=== PATIENT | female | born 1985 | race Caucasian/White ===

== ENCOUNTER 2017-04-29 19:11 | Emergency (ER) | payer MEDICAID ==
[~2017-04-29] VITALS: Ht 160 cm; Wt 41.5 kg
[~2017-04-29 19:11] MED LIST: ONDA4TAB6 PO; ONDA8TAB6 PO; POTA10TA36 PO
[2017-04-29 20:22] VITALS: BP 137/88
[2017-04-29 20:27] LABS: URINE HCG NEGATIVE (NEG)
[2017-04-29 20:36] LABS: CLARITY,URINE SLIGHTLY CLOUDY (Clear); COLOR,URINE YELLOW (Yellow); GLUCOSE, URINE NEGATIVE (Neg); KETONES,URINE 40 mg/dl (Neg); LEUKOCYTE ESTERASE ,URINE TRACE (Neg); NITRITES, URINE NEGATIVE (Neg); OCCULT BLOOD,URINE LARGE (Neg); PROTEIN,URINE NEGATIVE (Neg); UROBILINOGEN,URINE 0.2 E.U/dL (0.2-1.0)
[2017-04-29 21:03] LABS: UA COLLECTION TYPE CLN CATCH MIDSTREAM
[2017-04-29 21:06] LABS: MUCUS STRANDS MANY /LPF (Neg); SQUAMOUS EPITHELIAL CELL,UR MANY /LPF (FEW)
[2017-04-29 21:08] LABS: BACTERIA,URINE 1+ /HPF (Neg)
[2017-04-29 21:09] LABS: TRICHOMONAS,URINE FEW /HPF (NEGATIVE)
== END 2017-04-29 20:52 | disposition left against medical advice (07) ==
LOC: ER 19:12
DX: R11.10 Vomiting, unspecified (principal); R19.7 Diarrhea, unspecified; Z53.21 Procedure and treatment not carried out due to patient leaving prior to being seen by health care provider
CPT/HCPCS: 81001; 81025; 99281

== ENCOUNTER 2019-07-26 15:19 | Emergency (ER) | payer MEDICAID ==
[~2019-07-26] VITALS: Ht 162.6 cm; Wt 48.6 kg
--- NOTE | 2019-07-26 15:59 | NUR ---
TELE NEURO CONSULT HAS BEEN INITIATED
--- NOTE | 2019-07-26 16:20 | NUR ---
TELE NEURO ON GOING.
--- NOTE | 2019-07-26 16:31 | NUR ---
ALLY Sullivan at bedside.
[2019-07-26] MEDS ORDERED: ketorolac trometh inj. 60 MG/2 ML VIAL IM ONE (16:40)
[2019-07-26] MEDS ORDERED: HYDROcodone/acetaminophen 10/325mg tab PO ONE (16:40)
[2019-07-26 16:55] LABS: BASOPHILS % (AUTO) 0.6 % (0-1); EOSINOPHILS # (AUTO) 0.3 X10'3 (0-0.9); EOSINOPHILS % (AUTO) 3.8 % (0-6); HEMATOCRIT 35.4 % (35.0-45.0); HEMOGLOBIN 12.3 g/dl (12.0-16.0); LYMPHOCYTES # (AUTO) 2.5 X10'3 (1.1-4.8); LYMPHOCYTES % (AUTO) 34.3 % (21-51); MEAN CORPUSCULAR HEMOGLOBIN 31.1 PG (27.0-31.0); MEAN CORPUSCULAR HGB CONC 34.8 g/dL (33.0-36.5); MEAN CORPUSCULAR VOLUME 89.4 FL (78-98); MEAN PLATELET VOLUME 6.9 FL (7.4-10.4); MONOCYTES # (AUTO) 0.5 X10'3 (0-0.9); MONOCYTES % (AUTO) 7.1 % (2-12); NEUTROPHILS # (AUTO) 3.9 X10'3 (1.8-7.7); NEUTROPHILS % (AUTO) 54.2 % (42-75); PLATELET COUNT 262 X10'3 (140-440); RED BLOOD COUNT 3.97 X10'6 (4.20-5.60); RED CELL DISTRIBUTION WIDTH 13.4 % (11.5-14.5); WHITE BLOOD COUNT 7.3 X10'3 (4.5-11.0)
[2019-07-26 17:10] LABS: PARTIAL THROMBOPLASTIN TIME 29 SECONDS (22-32)
[2019-07-26 17:13] LABS: ALANINE AMINOTRANSFERASE 14 U/L (12-78); ALBUMIN 3.8 G/DL (3.4-5.0); ALBUMIN/GLOBULIN RATIO 1.2 (1.1-1.5); ALKALINE PHOSPHATASE 50 IU/L (46-116); ANION GAP 4 (8-16); ASPARTATE AMINO TRANSFERASE 14 U/L (10-37); BILIRUBIN,TOTAL 0.3 MG/DL (0.1-1.0); BLOOD UREA NITROGEN 10 MG/DL (7-18); BUN/CREATININE RATIO 15.6 (6.6-38.0); CALCIUM 9.2 MG/DL (8.5-10.1); CHLORIDE 106 MMOL/L (99-107); CREATININE 0.64 MG/DL (0.40-0.90); GLUCOSE 91 MG/DL (70-104); POTASSIUM 3.8 MMOL/L (3.5-5.1); SODIUM 142 MMOL/L (135-145); TOTAL CARBON DIOXIDE 32.5 MMOL/L (24-32); TOTAL PROTEIN 7.1 G/DL (6.4-8.2); eGFR > 90 ML/MIN
[2019-07-26 17:16] LABS: TROPONIN I < 0.04 NG/ML (0.0-0.05)
[2019-07-26 17:21] LABS: C-REACTIVE PROTEIN < 0.05 MG/DL (0.0-0.5)
--- NOTE | 2019-07-26 18:02 | NUR ---
Pt ambulated 25 feet with standby assist. Pt states, "I don't want to put weight on that leg because I don't know if it is going to hold me up." Dr Mcguire made aware.
[2019-07-26 19:50] VITALS: BP 110/72
== END 2019-07-26 19:54 | disposition home or self-care (01) ==
LOC: ER 15:20
DX: M79.672 Pain in left foot (principal); R20.0 Anesthesia of skin; R51 Headache; G89.29 Other chronic pain; F32.9 Major depressive disorder, single episode, unspecified; F15.90 Other stimulant use, unspecified, uncomplicated; Z86.69 Personal history of other diseases of the nervous system and sense organs; Z72.89 Other problems related to lifestyle; Z98.890 Other specified postprocedural states; Z88.0 Allergy status to penicillin; Z88.2 Allergy status to sulfonamides; Z79.899 Other long term (current) drug therapy
CPT/HCPCS: 36415; 70450; 80053; 82948; 84484; 85025; 85610; 85651; 85730; 86140; 93005; 96372; 99285; J1885

== ENCOUNTER 2020-01-22 03:15 | Emergency (ER) | payer MEDICAID ==
[~2020-01-22] VITALS: Ht 165.1 cm; Wt 50.0 kg
[2020-01-22 03:19] VITALS: BP 123/90
[2020-01-22] MEDS ORDERED: metoclopramide 10mg tablet PO ONE (03:50)
[2020-01-22] MEDS ORDERED: clindamycin 150mg capsule PO ONE (03:50)
[2020-01-22] MEDS ORDERED: HYDR-3965 PO (03:51)
[2020-01-22] MEDS ORDERED: CLIN150C8 PO (03:51)
[2020-01-22] MEDS: OXYcodone (OXYCONTIN) Ext Release 15 MG TAB.SR.12H PO ONE ×2 (03:56→04:00)
--- NOTE | 2020-01-22 04:01 | NUR ---
OXYCONTIN 15MG ER, DROPPED ON FLOOR, MEDICATION WASTED IN OMNICELL PHARMACIST AWARE, NEW ORDER PLACED
[2020-01-22] MEDS ORDERED: OXYcodone (OXYCONTIN) Ext Release 15 MG TAB.SR.12H PO ONE (04:05)
== END 2020-01-22 04:07 | disposition home or self-care (01) ==
LOC: ER 03:16
DX: H66.93 Otitis media, unspecified, bilateral (principal); H92.03 Otalgia, bilateral; G89.29 Other chronic pain; F32.9 Major depressive disorder, single episode, unspecified; F15.90 Other stimulant use, unspecified, uncomplicated; Z86.69 Personal history of other diseases of the nervous system and sense organs; Z98.890 Other specified postprocedural states; Z72.89 Other problems related to lifestyle; Z88.2 Allergy status to sulfonamides; Z88.0 Allergy status to penicillin; Z79.2 Long term (current) use of antibiotics; Z79.899 Other long term (current) drug therapy
CPT/HCPCS: 99284; J8597

== ENCOUNTER 2020-01-24 09:24 | Emergency (ER) | payer MEDICAID ==
[~2020-01-24] VITALS: Ht 162.6 cm; Wt 50.0 kg
[~2020-01-24 09:24] MED LIST changes: +CLIN150C8 PO; +HYDR-3965 PO
[2020-01-24] MEDS ORDERED: Cipro HC otic suspension 10ML bottle LEFT EAR STA (10:03)
[2020-01-24 10:27] VITALS: BP 100/63
[2020-01-24] MEDS ORDERED: LIDOcaine 4% (40 mg/ml) topical solution 50ml TP ONE (10:30)
[2020-01-24] MEDS ORDERED: HYDROcodone/acetaminophen 5mg/325mg tablet PO ONE (10:55)
== END 2020-01-24 11:44 | disposition home or self-care (01) ==
LOC: ER 09:24
DX: H60.592 Other noninfective acute otitis externa, left ear (principal); H61.22 Impacted cerumen, left ear; G89.29 Other chronic pain; F32.9 Major depressive disorder, single episode, unspecified; F15.90 Other stimulant use, unspecified, uncomplicated; Z86.69 Personal history of other diseases of the nervous system and sense organs; Z98.890 Other specified postprocedural states; Z72.89 Other problems related to lifestyle; Z88.0 Allergy status to penicillin; Z88.2 Allergy status to sulfonamides; Z79.2 Long term (current) use of antibiotics; Z79.899 Other long term (current) drug therapy
CPT/HCPCS: 69209; 99283

== ENCOUNTER 2021-02-10 12:39 | Emergency (ER) | payer MEDICAID ==
[~2021-02-10] VITALS: Ht 165.1 cm; Wt 56.8 kg
[~2021-02-10 12:39] MED LIST changes: -HYDR-3965 PO; -POTA10TA36 PO; +POTA10TA37 PO
[2021-02-10 12:46] VITALS: BP 143/93
[2021-02-10 13:17] LABS: BASOPHILS % (AUTO) 0.4 % (0-1); EOSINOPHILS # (AUTO) 0.2 X10'3 (0-0.9); EOSINOPHILS % (AUTO) 2.9 % (0-6); HEMATOCRIT 35.7 % (35.0-45.0); HEMOGLOBIN 12.4 g/dl (12.0-16.0); LYMPHOCYTES # (AUTO) 1.8 X10'3 (1.1-4.8); LYMPHOCYTES % (AUTO) 26.6 % (21-51); MEAN CORPUSCULAR HEMOGLOBIN 31.7 PG (27.0-31.0); MEAN CORPUSCULAR HGB CONC 34.8 g/dL (33.0-36.5); MEAN PLATELET VOLUME 6.7 FL (7.4-10.4); MONOCYTES # (AUTO) 0.6 X10'3 (0-0.9); NEUTROPHILS # (AUTO) 4.2 X10'3 (1.8-7.7); NEUTROPHILS % (AUTO) 61.1 % (42-75); PLATELET COUNT 276 X10'3 (140-440); RED BLOOD COUNT 3.92 X10'6 (4.20-5.60); RED CELL DISTRIBUTION WIDTH 12.4 % (11.5-14.5); WHITE BLOOD COUNT 6.8 X10'3 (4.5-11.0)
[2021-02-10] MEDS ORDERED: ALPRAZolam 0.5mg tablet PO ONE (13:25)
[2021-02-10 13:34] LABS: ALANINE AMINOTRANSFERASE 14 U/L (12-78); ALBUMIN 3.8 G/DL (3.4-5.0); ALKALINE PHOSPHATASE 62 IU/L (46-116); ANION GAP 4 (8-16); ASPARTATE AMINO TRANSFERASE 17 U/L (10-37); BILIRUBIN,TOTAL 0.3 MG/DL (0.1-1.0); BLOOD UREA NITROGEN 8 MG/DL (7-18); BUN/CREATININE RATIO 15.4 (6.6-38.0); CHLORIDE 101 MMOL/L (99-107); CREATININE 0.52 MG/DL (0.40-0.90); GLUCOSE 83 MG/DL (70-104); POTASSIUM 3.7 MMOL/L (3.5-5.1); SODIUM 137 MMOL/L (135-145); TOTAL CARBON DIOXIDE 32.2 MMOL/L (24-32); TOTAL PROTEIN 7.7 G/DL (6.4-8.2); eGFR > 90 ML/MIN
[2021-02-10] MEDS ORDERED: iohexol 300mg/ml 100ml inj. ONE (13:37)
[2021-02-10] MEDS ORDERED: oxyCODONE/APAP 5-325mg tablet PO ONE (15:40)
[2021-02-10] MEDS ORDERED: ACET-75 PO (17:56)
[2021-02-10] MEDS ORDERED: IBUP-1985 PO (17:56)
== END 2021-02-10 17:54 | disposition home or self-care (01) ==
LOC: ER 12:39
DX: E07.9 Disorder of thyroid, unspecified (principal); R22.1 Localized swelling, mass and lump, neck; R06.02 Shortness of breath; G89.29 Other chronic pain; F32.9 Major depressive disorder, single episode, unspecified; F15.90 Other stimulant use, unspecified, uncomplicated; Z98.890 Other specified postprocedural states; Z86.69 Personal history of other diseases of the nervous system and sense organs; Z72.89 Other problems related to lifestyle; Z88.0 Allergy status to penicillin; Z88.2 Allergy status to sulfonamides; Z79.2 Long term (current) use of antibiotics; Z79.899 Other long term (current) drug therapy
CPT/HCPCS: 36415; 70491; 71045; 80053; 84439; 84443; 85025; 99285; Q9967

== ENCOUNTER 2022-08-28 23:36 | Emergency (ER) | payer MEDICAID ==
[~2022-08-28] VITALS: Ht 165.1 cm; Wt 70.5 kg
[~2022-08-28 23:36] MED LIST changes: +CLIN-214 PO; -CLIN150C8 PO; +IBUP-1985 PO; +POTA-206 PO; -POTA10TA37 PO
[2022-08-29 00:01] VITALS: BP 153/85
[2022-08-29] MEDS ORDERED: CLIN300C54 PO (00:31)
[2022-08-29] MEDS ORDERED: IBUP-1986 PO (00:31)
== END 2022-08-29 00:38 | disposition home or self-care (01) ==
LOC: ER 23:37
DX: K04.7 Periapical abscess without sinus (principal); G89.29 Other chronic pain; M54.9 Dorsalgia, unspecified; F32.A Depression, unspecified; F15.10 Other stimulant abuse, uncomplicated; Z88.0 Allergy status to penicillin; Z88.1 Allergy status to other antibiotic agents; Z88.2 Allergy status to sulfonamides; Z79.899 Other long term (current) drug therapy
CPT/HCPCS: 99283

== ENCOUNTER 2022-09-28 13:08 | Emergency (ER) | payer MEDICAID ==
[~2022-09-28] VITALS: Ht 165.1 cm; Wt 65.0 kg
[~2022-09-28 13:08] MED LIST changes: +IBUP-1986 PO
[2022-09-28 13:47] LABS: BASOPHILS # (AUTO) 0.1 X10'3 (0-0.2); BASOPHILS % (AUTO) 0.5 % (0-1); EOSINOPHILS % (AUTO) 0.3 % (0-6); HEMATOCRIT 41.8 % (35.0-45.0); HEMOGLOBIN 14.2 g/dl (12.0-16.0); LYMPHOCYTES # (AUTO) 2.5 X10'3 (1.1-4.8); MEAN CORPUSCULAR HEMOGLOBIN 30.2 PG (27.0-31.0); MEAN CORPUSCULAR HGB CONC 34.1 g/dL (33.0-36.5); MEAN CORPUSCULAR VOLUME 88.7 FL (78-98); MONOCYTES # (AUTO) 0.8 X10'3 (0-0.9); MONOCYTES % (AUTO) 6.5 % (2-12); NEUTROPHILS # (AUTO) 8.5 X10'3 (1.8-7.7); NEUTROPHILS % (AUTO) 71.7 % (42-75); PLATELET COUNT 326 X10'3 (140-440); RED BLOOD COUNT 4.72 X10'6 (4.20-5.60); RED CELL DISTRIBUTION WIDTH 13.1 % (11.5-14.5); WHITE BLOOD COUNT 11.9 X10'3 (4.5-11.0)
[2022-09-28 13:48] VITALS: BP 154/94; PULSE 80; RESP 18; TEMP 97.4; O2SAT 96
[2022-09-28 14:03] LABS: APTT 25 SECONDS (22-32)
[2022-09-28 14:49] LABS: ALANINE AMINOTRANSFERASE 15 U/L (12-78); ALBUMIN 4.5 G/DL (3.4-5.0); ALKALINE PHOSPHATASE 87 IU/L (46-116); ANION GAP 20 (8-16); ASPARTATE AMINO TRANSFERASE 18 U/L (10-37); BILIRUBIN,TOTAL 1.1 MG/DL (0.1-1.0); BLOOD UREA NITROGEN 12 MG/DL (7-18); BUN/CREATININE RATIO 16.7 (10.0-20.0); CALCIUM 9.5 MG/DL (8.5-10.1); CHLORIDE 100 MMOL/L (99-107); CREATININE 0.72 MG/DL (0.40-0.90); GLUCOSE 80 MG/DL (70-104); POTASSIUM 3.6 MMOL/L (3.5-5.1); SODIUM 139 MMOL/L (135-145); TOTAL CARBON DIOXIDE 18.6 MMOL/L (24-32); eGFR 90 ML/MIN
--- NOTE | 2022-09-28 17:36 | NUR ---
not in lobby at 1657, 1710, and 1735
== END 2022-09-28 17:37 | disposition left against medical advice (07) ==
LOC: ER 13:08
DX: R00.2 Palpitations (principal); Z53.21 Procedure and treatment not carried out due to patient leaving prior to being seen by health care provider
CPT/HCPCS: 36415; 80053; 83880; 84484; 85025; 85610; 85730; 93005; 99281